=== PATIENT | male | born 1980 | race Two or more races ===

== ENCOUNTER 2017-01-04 13:54 | Emergency (ER) | payer OTHER ==
[2017-01-04 14:12] VITALS: BP 147/107
[2017-01-04] MEDS ORDERED: Bacitracin/Neomycin/Polymyxin B Oint 0.9 GM U/D Packet TOP ONE (15:20)
--- NOTE | 2017-01-04 16:02 | EDM.PDOC ---
ED HPI GENERAL MEDICAL PROBLEM - General Chief Complaint: Upper Extremity Injury/Pain Stated Complaint: right middle finger injury Time Seen by Provider: 01/04/17 14:12 Source of Information: Reports: Patient History Limitations: Reports: No Limitations - History of Present Illness INITIAL COMMENTS - FREE TEXT/NARRATIVE: Patient's right middle fingertip stuck between two pieces of equipment at work. Has laceration of fingertip. Denies any loss of function. No numbness. Mild to moderate discomfort at site of injury. No other injuries or complaints. No loss of function noted right hand/fingers. Tetanus updated 2014 Treatments REFERRAL AND INFORMATION AIDE: Reports: Cold Therapy, Other (see below) Other Treatments REFERRAL AND INFORMATION AIDE: pressure dressing Right 3-Middle finger Pain Score (Numeric/FACES): 5 - Related Data Allergies Allergy/AdvReac Type Severity Reaction Status Date / Time No Known Allergies Allergy Verified 01/04/17 13:56 Home Meds: Home Meds Lisinopril 30 mg PO DAILY 05/31/13 [History] Ibuprofen [Motrin] 600 mg PO TID PRN 09/05/13 [History] Past Medical History Cardiovascular History: Reports: Hypertension Musculoskeletal History: Reports: Back Pain, Chronic Other Musculoskeletal History: history of herniated disc Social & Family History - Tobacco Use Smoking Status *Q: Never Smoker Second Hand Smoke Exposure: Yes - Caffeine Use Caffeine Use: Reports: Coffee - Alcohol Use Days Per Week of Alcohol Use: 1 Number of Drinks Per Day: 2 Total Drinks Per Week: 2 - Recreational Drug Use Recreational Drug Use: No - Living Situation & Occupation Living situation: Reports: Single, with Significant Other Occupation: Employed Review of Systems - Review of Systems Review Of Systems: ROS reveals no pertinent complaints other than HPI. ED EXAM, GENERAL - Physical Exam Exam: See Below Exam Limited By: No Limitations General Appearance: Alert, WD/WN, No Apparent Distress Eye Exam: Bilateral Eye: EOMI, PERRL Head: Atraumatic, Normocephalic Respiratory/Chest: No Respiratory Distress Peripheral Pulses: 2+: Radial (R) Extremities: Normal Range of Motion, Normal Capillary Refill, Other (small laceration noted on pad of right middle finger. No swelling. No deformity. Able to flex and extend affected finger appropriately. Hand and finger NVI. ) Neurological: Alert, Oriented, Normal Cognition, Normal Gait, No Motor/Sensory Deficits Psychiatric: Normal Affect, Normal Mood Skin Exam: Warm, Dry, Intact ED TRAUMA EXTREMITY PROCEDURES - Laceration/Wound Repair Right Distal Ventral Finger Lac/Wound Length In cm: 1.5 Appearance: Subcutaneous, Clean Distal NVT: Neuro & Vascular Intact, No Tendon Injury Anesthetic Type: Local Local Anesthesia - Lidocaine (Xylocaine): 1% Plain Local Anesthetic Volume: 2cc Skin Prep: Providone-Iodine (Betadine) Exploration/Debridement/Repair: Wound Explored, In a Bloodless Field, Explored to Base Suture Size: 4-0 # of Sutures: 2 Suture Type: Nylon, Interrupted Drain Placement: No Sterile Dressing Applied: Nurse Tetanus Status Addressed: Yes Complications: No Course - Vital Signs Last Recorded V/S: Last Vital Signs Temp 37.2 C 01/04/17 14:08 Pulse 66 01/04/17 14:08 Resp 20 01/04/17 14:08 BP 147/107 H 01/04/17 14:08 Pulse Ox 98 01/04/17 14:08 - Orders/Labs/Meds Orders: Active Orders 24 hr Category Date Time Status Fingers Third Digit Rt F7 [CR] Stat Exams 01/04/17 14:12 Taken Meds: Medications Discontinued Medications Generic Name Dose Route Start Last Admin Trade Name Freq PRN Reason Stop Dose Admin Lidocaine HCl 5 ml 01/04/17 15:19 01/04/17 15:40 Xylocaine-Mpf 1% INJECT 01/04/17 15:20 5 ml ONETIME ONE Administration Neomycin/Polymyxin/Bacitracin 1 each 01/04/17 15:20 01/04/17 15:40 Triple Antibiotic Oint TOP 01/04/17 15:21 1 each ONETIME ONE Administration - Re-Assessments/Exams Free Text/Narrative Re-Assessment/Exam: BP elevated. Patient has HTN but suspect today that increase is related to finger injury/discomfort. Patient is to continue to have BP trends monitored. Laceration repaired. Recheck and suture removal in one week. Departure - Departure Time of Disposition: 16:00 Disposition: Home, Self-Care 01 Condition: Good Clinical Impression: HTN, Benign hypertension Finger laceration Qualifiers: Encounter type: initial encounter Finger: middle finger Damage to nail status: without damage Foreign body presence: without foreign body Laterality: right Qualified Code(s): S61.212A - Laceration without foreign body of right middle finger without damage to nail, initial encounter - Discharge Information Instructions: Laceration Care, Adult, [id number], Stitches, Jackson, or Adhesive Wound Closure, [id number] Referrals: PCP,None [Primary Care Provider] - Forms: ED Department Discharge Additional Instructions: Sutures out in one week. Wound care as discussed. Follow up if there are any problems or signs of infection. - My Orders Last 24 Hours: My Active Orders 01/04/17 14:12 Fingers Third Digit Rt F7 [CR] Stat - Assessment/Plan Last 24 Hours: My Active Orders 01/04/17 14:12 Fingers Third Digit Rt F7 [CR] Stat
== END 2017-01-04 16:15 | disposition home or self-care (01) ==
LOC: LL.ED 13:54
DX: S61.212A Laceration without foreign body of right middle finger without damage to nail, initial encounter (principal); I10 Essential (primary) hypertension; X58.XXXA Exposure to other specified factors, initial encounter; Y99.0 Civilian activity done for income or pay
CPT/HCPCS: 12001; 73140-F7; 99282